=== PATIENT | male | born 1965 | race Caucasian/White ===

== ENCOUNTER 2016-09-18 10:19 | Emergency (ER) | payer OTHER ==
[~2016-09-18] VITALS: Ht 165.1 cm; Wt 72.0 kg
[2016-09-18 10:26] VITALS: Ht 165.1 cm; Wt 72.0 kg
[2016-09-18] MEDS ORDERED: ALBUTEROL 0.5% (NEB) 2.5 MG/0.5 ML AMP INH STA (10:31)
[2016-09-18] MEDS ORDERED: SOD CHLORIDE 0.9% 1,000 ML IV STA (10:31)
[2016-09-18 10:46] LABS: ADD SCAN DIFF NO
[2016-09-18 10:51] LABS: MEAN CORPUSCULAR HEMOGLOBIN 30.6 pg (29.0-33.0); MEAN CORPUSCULAR HGB CONC 33.3 g/dl (32.0-37.0); MEAN CORPUSCULAR VOLUME 91.8 fl (82.0-101.0); MEAN PLATELET VOLUME 10.8 fl (7.4-10.4); PLATELET COUNT 202 10^3/UL (140-415); RED BLOOD COUNT 5.23 10^6/ul (4.70-6.10); RED CELL DISTRIBUTION WIDTH 12.3 % (11.5-14.5); WHITE BLOOD COUNT 7.6 10^3/ul (4.8-10.8)
[2016-09-18] MEDS ORDERED: DEXAMETHASONE 10 MG/ML 1 ML INJ IV ONE (11:00)
[2016-09-18] MEDS ORDERED: FAMOTIDINE 20 MG TAB PO ONE (11:00)
[2016-09-18 11:04] LABS: POTASSIUM 4.5 mmol/L (3.5-5.1)
[2016-09-18 11:06] LABS: ALBUMIN/GLOBULIN RATIO 1.21; BILIRUBIN,INDIRECT 0.5 mg/dl (0-1.1); BILIRUBIN,TOTAL 0.5 mg/dl (0.2-1.3); CREATININE 0.65 mg/dl (0.61-1.24); TOTAL PROTEIN 7.3 g/dl (6.1-8.1)
[2016-09-18 11:07] LABS: CALCIUM 9.2 mg/dl (8.4-10.2)
[2016-09-18] MEDS ORDERED: METF-382 PO (11:19)
--- NOTE | 2016-09-18 11:39 | RADRPT ---
PROCEDURE: XR Chest. CLINICAL INDICATION: Chest pain, abdominal pain, shortness of breath TECHNIQUE: AP view of the chest was performed. COMPARISON: None FINDINGS: The cardiomediastinal silhouette is within normal limits. The lungs are clear. No signs of pleural f luid or pneumothorax are seen. The osseous structures and soft tissues are unremarkable. IMPRESSION: No evidence for active cardiopulmonary disease. RPTAT: QQ .Violeta Villalpando MD, MD Date Time Electronically viewed and signed by .Violeta Villalpando MD, MD on 09/18/2016 11:38 .F/
[2016-09-18 12:31] VITALS: BP 124/79; PULSE 96; RESP 20; TEMP 97.3
[2016-09-18] MEDS ORDERED: BEN25 PO (12:48)
[2016-09-18] MEDS ORDERED: FAMO40TA52 PO (12:48)
[2016-09-18] MEDS ORDERED: EPIN0.3P4 INJ (12:48)
--- NOTE | 2016-09-18 12:57 | ERD ---
ER Documentation Chief Complaint Date/Time DATE: 09/18/16 TIME: 12:50 Chief Complaint allergic reaction to amoxicillin c/o tight throat and reddness to arms/ches HPI 51-year-old man brought in by EMS for allergic reaction, shortly after using amoxicillin. He was given a prescription for amoxicillin and clarithromycin for H. pylori positive gastritis and shortly after using amoxicillin, possibly 30 minutes after, he developed red pruritic rash and tight sensation in his throat with chest congestion. Patient denies chest pain or shortness of breath , no vomiting or diarrhea, no abdominal pain, no headache or blurry vision, no loss of consciousness. Patient was given Benadryl for his itchy rash and transported here. ROS All systems reviewed and are negative except as per history of present illness. Medications Home Meds Active Scripts Epinephrine (Epipen 2-Derek) 0.3 Mg/0.3 Ml Pen.injctr, 1 EA INJ ONCE Y for ALLERGIC REACTION, #1 EA Prov:ERICK PIRES MD 09/18/16 Famotidine* (Famotidine*) 40 Mg Tablet, 40 MG PO HS, #20 TAB Prov:ERICK PIRES MD 09/18/16 Diphenhydramine Hcl* (Benadryl*) 25 Mg Cap, 25 MG PO Q6 Y for ITCHING/RASH, #20 TAB Prov:ERICK PIRES MD 09/18/16 Reported Medications Metformin Hcl* (Metformin Hcl*) 500 Mg Tablet, 500 MG PO WITH BREAKFAST DINNE, # 30 TAB 09/18/16 Allergies Allergies: Coded Allergies: amoxicillin (Verified Allergy, Mild, RASH, 09/18/16) PMhx/Soc Gastritis, diabetes mellitus History of Surgery: No Anesthesia Reaction: No Hx Neurological Disorder: No Hx Respiratory Disorders: No Hx Cardiac Disorders: No Hx Psychiatric Problems: No Hx Miscellaneous Medical Probl: Yes (DM) Hx Alcohol Use: No Hx Substance Use: No Hx Tobacco Use: No FmHx Family History: No diabetes Physical Exam Vitals Vital Signs Date Time Temp Pulse Resp B/P Pulse Ox O2 Delivery O2 Flow Rate FiO2 09/18/16 12:31 97.3 96 20 124/79 Room Air 09/18/16 11:24 82 18 128/80 Room Air 09/18/16 10:44 86 20 99 21 09/18/16 10:26 98.1 81 16 131/89 99 09/18/16 10:25 98.2 82 20 131/89 Room Air Physical Exam GENERAL: Well-developed, well-nourished, no apparent distress HEENT: Moist mucous membranes, pink conjunctiva, no cervical spine tenderness or step-off deformities, no goiter, no jaundice or icterus, extraocular movements intact without pain. No submandibular induration, and no pharyngeal erythema NEURO: Alert and oriented 3, cranial nerves II through XII intact bilaterally, pupils equal round reactive to light, no focal deficits or facial asymmetry, sensation intact distally Strength 5/5 in upper and lower extremities bilaterally CARDIAC: Regular rate and rhythm, no murmurs rubs or gallops LUNGS: Clear bilaterally no wheezing crackles or stridor ABDOMEN: Soft nontender, no guarding, no rigidity, no rebound, no psoas sign no obturator sign. Normoactive bowel sounds SKIN: Warm and dry to touch, positive erythematous pruritic urticarial rash to the torso and upper extremities bilaterally, no target lesions, ulcers, or pustules EXTREMITIES: No clubbing cyanosis or edema, calves are bilaterally symmetrical, no Homans sign, no popliteal cord sign. Distal pulses equal and bilateral PSYCH: Normal affect without agitation or irritability Result Diagram: 09/18/16 1038 09/18/16 1038 Results 24 hrs Laboratory Tests Test 09/18/16 10:38 Alanine Aminotransferase (ALT/SGPT) 19IU/L Albumin 4.0g/dl Albumin/Globulin Ratio 1.21 Alkaline Phosphatase 74IU/L Anion Gap 19 Aspartate Amino Transf (AST/SGOT) 31IU/L Blood Urea Nitrogen 17mg/dl Calcium Level 9.2mg/dl Carbon Dioxide Level 24mmol/L Chloride Level 101mmol/L Creatinine 0.65mg/dl Direct Bilirubin 0.00mg/dl Globulin 3.30g/dl Glucose Level 321mg/dl Hematocrit 48.0% Hemoglobin 16.0g/dl Indirect Bilirubin 0.5mg/dl Lipase 86U/L Mean Corpuscular Hemoglobin 30.6pg Mean Corpuscular Hemoglobin Concent 33.3g/dl Mean Corpuscular Volume 91.8fl Mean Platelet Volume 10.8fl Platelet Count 94954^3/UL Potassium Level 4.5mmol/L Red Blood Count 5.2310^6/ul Red Cell Distribution Width 12.3% Sodium Level 139mmol/L Total Bilirubin 0.5mg/dl Total Protein 7.3g/dl White Blood Count 7.610^3/ul Current Medications Medications (Trade) Dose Ordered Sig/Rafael Route PRN Reason Start Time Stop Time Status Last Admin Dose Admin Sodium Chloride (NS) 1,000 ml @ 1,000 mls/hr Q1H STAT IV 09/18/16 10:31 09/18/16 11:30 DC 09/18/16 10:58 Dexamethasone (Decadron) 10 mg ONCE ONCE IV 09/18/16 11:00 09/18/16 11:01 DC 09/18/16 11:02 Famotidine (Pepcid) 40 mg ONCE ONCE PO 09/18/16 11:00 09/18/16 11:01 DC 09/18/16 10:57 Albuterol (Proventil 0.5% (Neb)) 10 mg ONCE STAT INH 09/18/16 10:31 09/18/16 10:32 DC 09/18/16 10:31 Procedures/MDM IV line was established patient was placed on classroom monitor rhythm strip revealed a sinus rhythm at about 80 bpm with upright P and T waves. Patient was afebrile. Should 1 L normal saline intravenously, dexamethasone 10 mg IV, and famotidine 40 mg p.o. Patient also received albuterol 5 mg via nebulizer although lungs were clear and oxygen saturation was within normal limits above 97%. EKG performed, read by me: 78 bpm, normal sinus rhythm, normal axis, no acute ST segment changes, narrow QRS complex, with good R-wave progression in precordial leads. Chest X-ray 1V Interpreted by me: Soft Tissue: No acute abnormalities Bones: No acute abnormalities Mediastinum/Cardiac Silhouette/Lungs: No acute abnormalities CBC and electrolytes were normal, liver function tests were normal, troponin was negative Differential diagnoses considered, included but not limited to acute coronary syndrome, pulmonary embolism, aortic dissection, abdominal aortic aneurysm, sepsis, stroke, meningitis, encephalitis, pneumonia, appendicitis, cholecystitis , bowel obstruction, pyelonephritis, nephrolithiasis, cystitis, as well as metabolic, hematologic, and electrolyte abnormalities. As well as abscess, cellulitis, fractures, and dislocations. Patient feels much better at this time, and vital signs are normal, symptoms have improved. I did give strict instructions to return to the ED if symptoms continue or worsen, patient will otherwise follow-up with primary care physician. Patient understood instructions and agreed to plan. Departure Diagnosis: Primary Impression: Allergic reaction Encounter type: initial encounter Qualified Code: T78.40XA - Allergic reaction, initial encounter Condition: Good Patient Instructions: Allergic Reaction, Drug ERICK PIRES MD Sep 18, 2016 12:57
[2016-09-18 13:00] LABS: BASOPHIL # 0.1 10^3/ul (0.0-0.1); EOSINOPHILS # 0.4 10^3/ul (0.0-0.5); LYMPHOCYTES # 3.8 10^3/ul (0.8-2.9); MONOCYTE # 0.6 10^3/ul (0.3-0.9); NEUTROPHIL # 2.7 10^3/ul (1.6-7.5)
== END 2016-09-18 13:28 | disposition home or self-care (01) ==
LOC: E/R 10:19
DX: R21 Rash and other nonspecific skin eruption (principal); E11.9 Type 2 diabetes mellitus without complications; T36.0X5A Adverse effect of penicillins, initial encounter; R06.02 Shortness of breath; Z79.84 Long term (current) use of oral hypoglycemic drugs
CPT/HCPCS: 36415; 71010; 80053; 83690; 85025; 94664; 96374; J1100; J7030; Z7502; Z7610

== ENCOUNTER 2017-08-06 22:41 | Emergency (ER) | END 2017-08-07 02:41 | disposition home or self-care (01) ==

== ENCOUNTER 2018-11-20 09:46 | Emergency (ER) | payer SELFPAY ==
[~2018-11-20] VITALS: Ht 167.6 cm; Wt 85.0 kg
[2018-11-20 09:46] VITALS: Ht 167.6 cm; Wt 85.0 kg
[~2018-11-20 09:46] MED LIST: BEN25 PO; BEN50 PO; EPIN0.3P4 INJ; FAMO-96 PO; FAMO40TA5 PO; METF500T24 PO; PRED20TA PO
--- NOTE | 2018-11-20 10:09 | ERD ---
ER Documentation Chief Complaint Chief Complaint Patient Brought in from triage with complaint of pale, diaphoretic HPI 53-year-old male history of diabetes mellitus type 2 and allergy to amoxicillin presents to the ED complaining of generalized flushing, malaise and lightheadedness after taking Keflex he got in [place] for sore throat. Denies chest pain, palpitations, shortness of breath or wheezing. No abdominal pain, nausea or vomiting. Patient complains of a 2-day history of mild odynophagia but no other URI symptoms, rhinorrhea, cough or fevers. ROS All systems reviewed and are negative except as per history of present illness. Medications Home Meds Active Scripts Prednisone* (Prednisone*) 20 Mg Tab, 60 MG PO DAILY for 5 Days, TAB Prov:KATHARINE CALLEJAS MD 08/07/17 Diphenhydramine Hcl* (Benadryl*) 50 Mg Cap, 50 MG PO Q6H PRN for ITCHING/RASH, #30 CAP Prov:KATHARINE CALLEJAS MD 08/07/17 Famotidine* (Pepcid*) 20 Mg Tablet, 20 MG PO BID for 5 Days, TAB Prov:KATHARINE CALLEJAS MD 08/07/17 Epinephrine (Epipen 2-Derek) 0.3 Mg/0.3 Ml Pen.injctr, 1 EA INJ ONCE PRN for ALLERGIC REACTION, #1 EA Prov:ERICK PIRES MD 09/18/16 Famotidine* (Famotidine*) 40 Mg Tablet, 40 MG PO HS, #20 TAB Prov:ERICK PIRES MD 09/18/16 Diphenhydramine Hcl* (Benadryl*) 25 Mg Cap, 25 MG PO Q6 PRN for ITCHING/RASH, #20 TAB Prov:ERICK PIRES MD 09/18/16 Reported Medications Metformin Hcl* (Metformin Hcl*) 500 Mg Tablet, 500 MG PO WITH BREAKFAST DINNE, #30 TAB 09/18/16 Allergies Allergies: Coded Allergies: amoxicillin (Verified Allergy, Mild, RASH, 09/18/16) PMhx/Soc History of Surgery: No Anesthesia Reaction: No Hx Neurological Disorder: No Hx Respiratory Disorders: No Hx Cardiac Disorders: No Hx Psychiatric Problems: No Hx Miscellaneous Medical Probl: Yes (DM) Hx Alcohol Use: No Hx Substance Use: No Hx Tobacco Use: No FmHx No family history relevant to presenting complaint Physical Exam Vitals Vital Signs Date Temp Pulse Resp B/P (MAP) Pulse Ox O2 O2 Flow FiO2 Time Delivery Rate 11/20/18 98.3 82 2 117/65 98 Room Air 12:30 (82) 11/20/18 98.3 82 20 133/67 98 Room Air 11:30 (89) 11/20/18 98.3 66 20 132/79 98 Room Air 10:30 (96) 11/20/18 97.4 80 20 104/65 89 09:46 (78) Physical Exam Const: Moderate distress Head: Atraumatic Eyes: Normal Conjunctiva ENT: Normal External Ears, Nose and Mouth. Neck: Full range of motion. No meningismus. Resp: Breath sounds equal and clear to auscultation bilaterally. No rales rhonchi or wheezes Cardio: Regular rate and rhythm, no murmurs Abd: Soft, non tender, non distended. Normal bowel sounds Skin: Generalized flushing but no your urticaria Back: No midline or flank tenderness Ext: No cyanosis, or edema Neur: Awake and alert. No focal deficit Psych: Anxious, cooperative Result Diagram: 11/20/18 1019 11/20/18 1019 Results 24 hrs Laboratory Tests Test 11/20/18 09:50 11/20/18 10:19 Bedside Glucose 176 mg/dL White Blood Count 8.3 10^3/ul Red Blood Count 5.06 10^6/ul Hemoglobin 15.5 g/dl Hematocrit 46.1 % Mean Corpuscular Volume 91.1 fl Mean Corpuscular Hemoglobin 30.6 pg Mean Corpuscular Hemoglobin Concent 33.6 g/dl Red Cell Distribution Width 12.6 % Platelet Count 262 10^3/UL Mean Platelet Volume 10.8 fl Immature Granulocytes % 0.500 % Neutrophils % 23.6 % Lymphocytes % 63.6 % Monocytes % 4.1 % Eosinophils % 7.5 % Basophils % 0.7 % Nucleated Red Blood Cells % 0.0 /100WBC Immature Granulocytes # 0.040 10^3/ul Neutrophils # 2.0 10^3/ul Lymphocytes # 5.3 10^3/ul Monocytes # 0.3 10^3/ul Eosinophils # 0.6 10^3/ul Basophils # 0.1 10^3/ul Nucleated Red Blood Cells # 0.0 10^3/ul Sodium Level 140 mmol/L Potassium Level 4.1 mmol/L Chloride Level 108 mmol/L Carbon Dioxide Level 21 mmol/L Anion Gap 11 Blood Urea Nitrogen 17 mg/dl Creatinine 0.74 mg/dl Est Glomerular Filtrat Rate mL/min > 60 mL/min Glucose Level 205 mg/dl Calcium Level 9.2 mg/dl Current Medications Medications Dose Sig/Rafael Start Time Status Last (Trade) Ordered Route PRN Stop Time Admin Dose Reason Admin 50 mg ONCE STAT 11/20/18 DC 11/20/18 Diphenhydrami IV 10:11 10:39 ne HCl 11/20/18 10:14 (Benadryl) Epinephrine 0.3 mg ONCE STAT 11/20/18 DC 11/20/18 IM 10:11 10:38 (EPINEPHrine) 11/20/18 10:14 Famotidine 20 mg ONCE STAT 11/20/18 DC 11/20/18 (Pepcid Iv) IV 10:11 10:38 11/20/18 10:14 125 mg ONCE STAT 11/20/18 DC 11/20/18 Methylprednis IV 10:11 10:38 olone Sodium 11/20/18 10:14 Succinate (Solu-Medrol) Sodium 1,000 ml @ Q1H STAT 11/20/18 DC 11/20/18 Chloride 1,000 mls/hr IV 10:11 10:39 11/20/18 11:10 Procedures/MDM DOCUMENTS REVIEWED: ED nurse, prior ED visits for allergic reaction to amoxicillin EKG: Time: 953. Sinus rhythm. Ventricular rate 88. Normal [place] and QRS. Left axis deviation and LVH. No acute ST segment elevation or depression. No ectopy. Observation Note: Time: 3 hours Family Hx: No Hypertension Evaluation: Multiple exams showed improving symptoms and no evidence of anaphylaxis or rebound. MEDICAL DECISION MAKIN-year-old male history of diabetes mellitus type 2 and allergy to amoxicillin presents to the ED complaining of generalized flushing, malaise and lightheadedness after taking Keflex he got in [place] for sore throat. CBC is unremarkable for leukocytosis or anemia. Chemistry reveals no evidence of electrolyte abnormalities renal insufficiency or hyperglycemia. Patient presents with an acute allergic reaction from Keflex. No criteria for anaphylaxis. Symptoms resolved with intravenous hydration, corticosteroids, H1/H2 blockers. Pharynx is clear without erythema, exudate, signs of pharyngitis or indication for antibiotics. Stable for discharge with p recautionary instructions and outpatient follow-up as counseled. Counseled patient regarding diagnostic workup, diagnosis and need for followup. Patient advised to avoid all cephalosporins and penicillins. Understands to return to ED if symptoms recur, worsen or any other concerns. Departure Diagnosis: Primary Impression: Acute allergic reaction Encounter type: initial encounter Qualified Codes: T78.40XA - Allergy, unspecified, initial encounter Additional Impression: Allergy or intolerance to drug Condition: Stable (Improved) JOSEY ONOFRE MD November 20, 2018 10:09
[2018-11-20] MEDS ORDERED: DIPHENHYDRAMINE 50 MG INJ IV STA (10:11)
[2018-11-20] MEDS ORDERED: METHYLPREDNISOLONE 125 MG INJ IV STA (10:11)
[2018-11-20] MEDS ORDERED: EPINEPHrine 1 MG INJ IM STA (10:11)
[2018-11-20] MEDS ORDERED: FAMOTIDINE 20 MG INJ IV STA (10:11)
[2018-11-20] MEDS ORDERED: SOD CHLORIDE 0.9% 1,000 ML IV STA (10:11)
[2018-11-20 12:30] VITALS: BP 117/65; PULSE 82; RESP 2
== END 2018-11-20 13:13 | disposition home or self-care (01) ==
LOC: E/R 09:46
DX: R23.2 Flushing (principal); E11.9 Type 2 diabetes mellitus without complications; T36.0X5A Adverse effect of penicillins, initial encounter; Z79.84 Long term (current) use of oral hypoglycemic drugs
CPT/HCPCS: 80048; 82962; 85025; 93005; 96372; 96374; 96375; 99284; J0171; J1200; J2930; J7030